=== PATIENT | female | born 1970 | race Caucasian/White ===

== ENCOUNTER 2019-03-25 07:30 | Day surgery (SDC) | payer OTHER ==
[2019-03-25] VITALS (12 sets, daily range): BP systolic 100–138; BP diastolic 64–79; PULSE 64–81; RESP 12–20; Ht 160 cm; Wt 85.2 kg
[~2019-03-25] VITALS: Ht 160 cm; Wt 85.2 kg
[~2019-03-25 07:30] MED LIST: CEFAZOLIN 2 GM/50 ML (PMX) 50 ML IVPB ONE; CEFAZOLIN 2 GM/50 ML (PMX) 50 ML IVPB SCH; SOD CHLORIDE 0.9% 1,000 ML IV SCH
--- NOTE | 2019-03-25 09:40 | PREAC ---
Date/Time of Note Date/Time of Note DATE: 03/25/19 TIME: 09:36 Anesthesia Eval and Record Evaluation Time Pre-Procedure Interview DATE: 03/25/19 TIME: 09:36 Age 48 Sex female NPO: 8 hrs Preoperative diagnosis Tongue Mass Planned procedure Excision of Tongue mass Past Medical History Past Medical History: None Surgery & Anesthesia Issues No known issue Meds Anticoagulation: No Beta Aydee within 24 hr: No Reason Beta Aydee not given: Pt. not on B-Aydee No Active Prescriptions or Reported Meds Current Medications Sodium Chloride 1,000 ml @ 75 mls/hr [id number] IV Last administered on 03/25/19at 08:28; Admin Dose 75 MLS/HR; Start 03/25/19 at 06:00; Stop 03/25/19 at 20:00 Meds reviewed: Yes Allergies Coded Allergies: No Known Allergy (Unverified , 03/25/19) Allergies Reviewed: Yes Labs/Studies Labs Reviewed: Reviewed by anesthesiologist test: Negative Studies: ECG (n/a), CXR (n/a) Pre-procedure Exam Last vitals Vital Signs Date Temp Pulse Resp B/P (MAP) Pulse Ox O2 O2 Flow FiO2 Time Delivery Rate 03/25/19 97.3 66 16 138/79 99 Room Air 08:49 (98) Airway: Adequate mouth opening, Adequate thyromental dist Mallampati: Mallampati II Teeth: Normal Lung: Normal Heart: Normal ASA Physical Status ASA physical status: 1 Emergency: None Planned Anesthetic General/MAC: ETT Planned Pain Management Parenteral pain med Pre-operative Attestations Prior to commencing anesthesia and surgery, the patient was re-evaluated, there was verification of: *The patient's identity *The results of appropriate recent lab work and preoperative vital signs *The above evaluation not changing prior to induction *Anesthetic plan, risk benefits, alternative and complications discussed with patient/family; questions answered; patient/family understands, accepts and wishes to proceed. JUWAN HAN MD Mar 25, 2019 09:40
[2019-03-25] MEDS ORDERED: MIDAZOLAM 1 MG/ML 2 ML INJ ONE (09:49)
[2019-03-25] MEDS ORDERED: LIDOCAINE 100 MG SYRINGE ONE (09:50)
[2019-03-25] MEDS ORDERED: PROPOFOL 20 ML ONE (09:50)
[2019-03-25] MEDS ORDERED: BUPIVACAINE 0.5%/EPI (SDV) 30 ML INJ ONE (09:51)
[2019-03-25] MEDS ORDERED: EPHEDrine 25 MG/5 ML SYG IV PRN (10:00)
[2019-03-25] MEDS ORDERED: morphine 2 MG INJ IV PRN ×2 (10:00)
[2019-03-25] MEDS ORDERED: FENTAnyl 50 MCG/ML VIAL IV PRN ×2 (10:00)
[2019-03-25] MEDS ORDERED: ONDANSETRON 4 MG INJ IV PRN (10:00)
[2019-03-25] MEDS ORDERED: OXYCODONE/ACETAMINOPHEN (5/325) TAB PO PRN (10:00)
[2019-03-25] MEDS ORDERED: METOCLOPRAMIDE 10 MG INJ IV PRN (10:00)
[2019-03-25] MEDS ORDERED: LABETALOL HCL 20MG INJ IV PRN (10:00)
[2019-03-25] MEDS ORDERED: ONDANSETRON 4 MG INJ ONE (10:26)
[2019-03-25] MEDS ORDERED: METOCLOPRAMIDE 10 MG INJ ONE (10:26)
[2019-03-25] MEDS ORDERED: SUGAMMADEX SODIUM 200 MG/2 ML VIAL IV ONE ×2 (10:30→10:40)
--- NOTE | 2019-03-25 10:52 | PAC ---
Date/Time of Note Date/Time of Note DATE: 03/25/19 TIME: 10:52 Post-Anesthesia Notes Post-Anesthesia Note Last documented vital signs Vital Signs Date Temp Pulse Resp B/P (MAP) Pulse Ox O2 O2 Flow FiO2 Time Delivery Rate 03/25/19 97.3 66 16 138/79 99 Room Air 08:49 (98) Activity: WNL Respiratory function: WNL Cardiovascular function: WNL Mental status: Baseline Pain reasonably controlled: Yes Hydration appropriate: Yes Nausea/Vomiting absent: Yes ARIEL ARANGO CRNA Mar 25, 2019 10:52
--- NOTE | 2019-03-25 11:05 | SIPON ---
Date/Time of Note Date/Time of Note DATE: 03/25/19 TIME: 11:04 Operative Report Preoperative Diagnosis Pedunculated left tongue lesion Postoperative Diagnosis Same Operation/Procedure Performed Excision of pedunculated left tongue lesion Surgeon see signature line information technology assistant None Anesthesia: general Estimated blood loss: 0 - 10 ml's Transfusion Required none Specimen Left tongue lesion Grafts/Implants none Complications none KEY DOHERTY MD Mar 25, 2019 11:05
[2019-03-25] MEDS ORDERED: FENTAnyl 50 MCG/ML VIAL ONE (11:19)
--- NOTE | 2019-03-25 12:12 | OPR ---
DATE OF OPERATION: 03/25/2019 POSTOPERATIVE DIAGNOSIS: Pedunculated left tongue lesion. POSTOPERATIVE DIAGNOSIS: Pedunculated left tongue lesion. OPERATION PERFORMED: Resection of the pedunculated left tongue lesion. ANESTHESIA: General. ANESTHESIOLOGIST: Nurse deputy sheriff custody, . SURGEON: Tony Vera MD AIR CHIPPER: None. INDICATIONS FOR PROCEDURE: The patient is a 48-year-old female who presented with a relatively longs tanding approximately 2 cm pedunculated mass on the left side of her mid tongue. She requested excis ion. She consented and was scheduled for surgery. DESCRIPTION OF PROCEDURE: The patient was brought to the operating theater, placed under general ane sthesia. The tongue was gently grasped with a [place] clamp. A second Patito clamp was used to gra sp the mass and the area of the base of the lesion was infiltrated with 0.5% Marcaine local anestheti c with epinephrine, and using needlepoint cautery, the mass was resected at its base and sent for pat hologic analysis. Residual bleeding was controlled with cautery and this concluded the procedure. T he patient tolerated procedure well. Estimated blood loss was less than 2 mL. There were no complic ations and the patient was transported in stable condition to the recovery room. Dictated By: TONY CACERES/LEESA Conf#: [id number] DID#: [id number]
== END 2019-03-25 12:51 | disposition home or self-care (01) ==
LOC: SDS 07:30
PROVIDERS: ATTEND Surgery Surgical Oncology
DX: K14.8 Other diseases of tongue (principal)
CPT/HCPCS: 41110; 84703; 88307; J2001; J2250; J2405; J2765; J3010; Z7512; Z7610; J0690